=== PATIENT | female | born 1995 | race Caucasian/White ===

== ENCOUNTER 2021-09-02 06:12 | Emergency (ER) | payer MEDICAID ==
[~2021-09-02] VITALS: Ht 152.4 cm; Wt 80.0 kg
[2021-09-02] MEDS ORDERED: ONDANSETRON HCL 4MG/2ML INJ IV STA (08:01)
[2021-09-02] MEDS ORDERED: KETOROLAC 30MG/ML VIAL IV STA (08:01)
[2021-09-02] MEDS ORDERED: SODIUM CHLORIDE 0.9% 1,000 ML IV ONE (08:15)
[2021-09-02 08:27] VITALS: BP 170/114
[2021-09-02 08:28] LABS: BASOPHILS % 0.2 % (0.0-2.0); CHLORIDE 101 mEq/L (98-107); EOSINOPHILS % 2.4 % (0.0-5.0); HEMATOCRIT. 51.2 % (36.0-48.0); HEMOGLOBIN. 17.5 g/dL (12.0-16.0); LYMPHOCYTES % 10.5 % (20.0-50.0); MEAN CORPUSCULAR HEMOGLOBIN 32.6 pg (28.0-32.0); MEAN CORPUSCULAR VOLUME 95.3 fL (81.0-99.0); NEUTROPHILS % 83.9 % (40.0-76.0); PLATELET 410 x1000/uL (130-400); RED BLOOD CELL COUNT 5.37 mill/uL (4.2-5.4); RED CELL DISTRIBUTION WIDTH 14.7 % (11.6-14.6)
[2021-09-02] MEDS ORDERED: ONDANSETRON HCL 4MG/2ML INJ IV ONE (11:00)
[2021-09-02 11:37] LABS: CLARITY URINE CLOUDY (CLEAR); COLOR URINE DARK YELLOW (YELLOW); KETONES URINE TRACE (NEGATIVE); LEUKOCYTE ESTERASE URINE TRACE (NEGATIVE); NITRITE URINE NEGATIVE (NEGATIVE); OCCULT BLOOD URINE 3+ (NEGATIVE); PH URINE 6.5 (4.5-8.0); PROTEIN URINE 1+ (NEGATIVE); SPECIFIC GRAVITY URINE 1.022 (1.005-1.030)
[2021-09-02] MEDS ORDERED: ONDA4TAB50 MT (12:05)
[2021-09-02] MEDS ORDERED: T3 PO (12:05)
== END 2021-09-02 12:09 | disposition home or self-care (01) ==
LOC: ER 06:12
DX: R10.9 Unspecified abdominal pain (principal); Z98.890 Other specified postprocedural states
CPT/HCPCS: 36415; 74176; 80053; 81003; 85025; 96361; 96374; 96375; 96376; 99284; J1885; J2405; J7030

== ENCOUNTER 2021-10-06 16:30 | Emergency (ER) | payer MEDICAID ==
[~2021-10-06] VITALS: Ht 165.1 cm; Wt 73.0 kg
[~2021-10-06 16:30] MED LIST: ONDA4TAB50 MT; T3 PO
[2021-10-06 16:43] VITALS: BP 138/86
== END 2021-10-06 19:00 | disposition left against medical advice (07) ==
LOC: ER 16:30
DX: Z53.21 Procedure and treatment not carried out due to patient leaving prior to being seen by health care provider (principal)
CPT/HCPCS: 99283